=== PATIENT | male | born 1965 | race Two or more races ===

== ENCOUNTER → 2024-08-30 | Outpatient (CLI) | payer OTHER ==
--- NOTE | 2024-08-30 13:18 | DVH ---
CLINICAL INFORMATION: 59 years old, Male; NEUROLGY RECOMMENDED. Other clinical information provided . TECHNIQUE: Axial CT images of the lumbar spine were obtained without IV contrast. Coronal and sagitt al reformatted images were obtained, reviewed, and stored. One or more of the following dose reducti on techniques were used: Automated exposure control. Adjustment of mA and/or kV according to patient size. CTDIvol = 38.94, 0.07, 0.41 mGy DLP = 1165.34 mGy-cm COMPARISON: Correlation made to same day MRI exam. FINDINGS: Straightening of the normal lumbar lordosis. Minimal retrolisthesis of L2 on L3. Mild retrolisthesis of L3 on L4. Mild retrolisthesis of L5 on S1. Vertebral body heights are maintained. Posterior elemen ts are intact. No acute fracture. Paraspinal soft tissues are unremarkable. Lumbar disc levels: L1-L2: Severe disc space narrowing with associated endplate sclerosis and endplate spurring. Severe s fco canal stenosis and partial effacement of the lateral recesses. Facet hypertrophy and dorsal spu rring contributes to severe left and moderate right neural foraminal stenoses. Vacuum disc disease al so noted. L2-L3: Severe disc space narrowing with associated endplate sclerosis and endplate spurring. Severe s fco canal stenosis and partial effacement of the lateral recesses. Facet hypertrophy and dorsal spu rring with moderate to severe bilateral neural foraminal stenoses. Vacuum disc disease also noted. L3-L4: Severe disc space narrowing with associated endplate sclerosis and endplate spurring. Severe s fco canal stenosis and partial effacement of the lateral recesses. Facet hypertrophy and dorsal spu rring with moderate left and severe right neural foraminal stenoses. Vacuum disc disease also noted. L4-L5: Moderate to severe disc space narrowing with associated endplate sclerosis and endplate spurri ng. Severe spinal canal stenosis partial effacement of the lateral recesses. Facet hypertrophy and d orsal spurring contributing to severe left and moderate to severe right neural foraminal stenoses. Va cuum disc disease also noted. L5-S1: Severe disc space narrowing with posterior disc osteophyte complex causing moderate to severe spinal canal stenosis and effacement of the lateral recesses. Facet hypertrophy and dorsal spurring w ith severe left and moderate to severe right neural foraminal stenoses. Vacuum disc disease also note d. IMPRESSION: 1. Straightening of the normal cervical lordosis with multilevel minimal/ mild spondylolisthesis as d escribed above. 2. Degenerative disc disease and facet disease in the lumbar spine with associated spinal canal, suba rticular, and neural foraminal stenoses as detailed above. 3. Additional findings as described above. 4. Correlate with MRI lumbar spine exam performed the same day.
== END | disposition home or self-care (01) ==
LOC: XYW 09:56
PROVIDERS: ATTEND Personal Emergency Response Attendant
DX: M47.817 Spondylosis without myelopathy or radiculopathy, lumbosacral region (principal); M48.07 Spinal stenosis, lumbosacral region; M51.369 Other intervertebral disc degeneration, lumbar region without mention of lumbar back pain or lower extremity pain; M43.17 Spondylolisthesis, lumbosacral region; M46.07 Spinal enthesopathy, lumbosacral region; M41.86 Other forms of scoliosis, lumbar region; G95.89 Other specified diseases of spinal cord; M25.78 Osteophyte, vertebrae
CPT/HCPCS: 72131